=== PATIENT | male | born 1950 | race Caucasian/White ===

== ENCOUNTER → 2016-08-18 | Outpatient (CLI) | payer SELFPAY | LOC: EMS 16:18 | DX: Z53.20 Procedure and treatment not carried out because of patient's decision for unspecified reasons (principal) ==

== ENCOUNTER → 2016-09-01 | Outpatient (CLI) | payer SELFPAY | LOC: EMS 13:38 | DX: Z53.20 Procedure and treatment not carried out because of patient's decision for unspecified reasons (principal) ==

== ENCOUNTER 2016-10-30 09:15 | Observation (INO) | payer MEDICARE, OTHER ==
[~2016-10-30] VITALS: Ht 177.8 cm; Wt 98.2 kg
[2016-10-30] VITALS (7 sets, daily range): BP systolic 120–148; BP diastolic 74–96
[~2016-10-30 09:15] MED LIST changes: -ALBU8CC IH; -CETI10TA20 PO; -CYAN10006 PO; -FLC1T PO; -LORA-102 PO; -LSRT50T PO; -MAGN1POW4 PO; -METO-71 PO; -TRIA10.8 NSEACH; -VITAMIN B PO
--- OUTSIDE RECORDS SUMMARY | 2016-10-30 09:24 | XMS REPORT | Continuity of Care Document ---
Author Author [facility] LIVE HCIS Organization [facility]IS Address Unknown Phone Unavailable Care Team Providers Care Sheet Layer Name Role Phone TANIA WALSH MD PCP [phone] Insurance Providers Payer Name Policy Number Subscriber Name Relationship Medicare A And B [id number] Jacinta Babb Jeramy Self / Same As Patient [facility] [id number] Jacinta Babb Self / Same As Patient Chief Complaint and Reason for Visit Chief Complaint Injury Reason for Visit Left knee pain Problems Medical Problems Problem Onset Date Status Left knee pain Unknown Active Medications Medication Dose Route Sig Days/Qty Instructions Order Date Discontinued Date Status Metoprolol Succinate 100 Mg ORAL TWICE A DAY 12/28/14 Active Metformin Hcl (Glucophage) 1,000 Mg ORAL TWICE A DAY 12/28/14 Active Omeprazole 20 Mg ORAL DAILY 12/28/14 Active Atorvastatin 80 Mg ORAL DAILY 12/28/14 Active Lisinopril (Zestril) 10 Mg ORAL DAILY 12/28/14 Active Hydrocodone Bit/Acetaminophen 1 Each ORAL EVERY 4HRS PRN PAIN Active Docusate Sodium 100 Mg ORAL TWICE A DAY 12/28/14 Active Multivitamin 1 Each ORAL DAILY 12/28/14 Active Aspirin 81 Mg ORAL DAILY 12/28/14 Active Triamcinolone Acetonide 10.8 Ml NS DAILY 12/28/14 Active Cetirizine Hcl 10 Mg ORAL DAILY 12/28/14 Active Loratadine/Pseudoephedrine 1 Each ORAL DAILY 12/28/14 Active Social History No social history. Hospital Discharge Instructions No hospital discharge instructions. Plan of Care Discharge Date 12/29/14 12:35am Disposition 01 HOME OR SELF-CARE Prescriptions See Medications Section Referrals TANIA WALSH MD Additional Instructions/Education Continue current pain medication as needed Follow up with Dr. Walsh Sunday or Sunday for recheck Return if symptoms worsen. Some of your test results may not be complete prior to your leaving the Emergency Department. The Emergency Department is not authorized to give test results over the phone. Please contact the doctor's office listed in this packet of information for your final results. Follow up with your primary care physician or return to the Emergency Department for worsening or worrisome symptoms. * Emergency Department phone number: [phone], x [phone] MEDICAL RECORD If you need copies of your X-rays, call [phone]. If you need copies of your medical record, including lab results, a signed authorization for release of records will be required. A telephone call for release of Health Information is not allowed. BILLING Billing can sometimes be confusing and frustrating. To help avoid confusion in the future, please take a moment to acquaint yourself with the billing parties for services. [employer] Emergency Room Services [facility] Physician Services [facility] X-rays [place] [facility] Patients will receive bills for services from the appropriate provider. If you have any questions about your [facility] bill, our staff will be happy to assist you. Please call [phone], and ask for the billing department. THANK YOU for choosing [facility] as your emergency care provider! Functional Status No functional status results. Allergies, Adverse Reactions, Alerts Allergen Type Severity Reaction Status Last Updated Sulfa (Sulfonamide Antibiotics) Allergy Severe allergies. Active 12/28/14 Phenobarbital Allergy Severe Anaphylaxis Active 12/28/14 PCN Allergy Severe Hives Active 12/28/14 Immunizations No immunization records. Vital Signs Acute Vital Signs Vital Response Date/Time Temperature (Fahrenheit) 97.2 Pulse 75 bpm Respirations 18 Height 5 ft 9 in Weight 205 lb Body Mass Index 30.0 kg/m^2 Results Test Source Date Result Interp. Ref. Range Comments Alanine Aminotransferase (ALT/SGPT) November 09, 2014 3:33pm 43 U/L N 30- 65 Albumin November 09, 2014 3:33pm 4.2 g/dL N 3.4-5.0 Albumin/Globulin Ratio November 09, 2014 3:33pm 1.909 H 1.1-1.8 Alkaline Phosphatase November 09, 2014 3:33pm 117 U/L N 38-126 Anion Gap November 09, 2014 3:33pm 18.2 MEQ/L H 3-15 Aspartate Amino Transf (AST/SGOT) November 09, 2014 3:33pm 59 U/L H 15-37 BUN/Creatinine Ratio November 09, 2014 3:33pm 9 L 10-20 Basophils # (Auto) November 09, 2014 3:33pm 0.1 10^3uL Basophils (%) (Auto) November 09, 2014 3:33pm 2 % N 0-2 Blood Urea Nitrogen November 09, 2014 3:33pm 7 mg/dL N 7-18 Calcium Level November 09, 2014 3:33pm 9.1 mg/dL N 8.8-10.8 Calcium/Ionized Calcium Ratio November 09, 2014 3:33pm 4.2 mg/dL N 3.8-4.6 Calculated Osmolality November 09, 2014 3:33pm 254 mosm/L L 280-300 Carbon Dioxide Level November 09, 2014 3:33pm 21 mmol/L L 22-29 Chloride Level November 09, 2014 3:33pm 98 mmol/L N 98-108 Cholesterol Level November 09, 2014 3:33pm 131 mg/dL N 50-200 Cholesterol/HDL Ratio November 09, 2014 3:33pm 1.7 N 0.0-5.0 Creatinine November 09, 2014 3:33pm 0.77 mg/dL L 0.8-1.5 Eosinophils # (Auto) November 09, 2014 3:33pm 0.1 10^3uL Eosinophils (%) (Auto) November 09, 2014 3:33pm 3 % N 0-4 Estimat Glomerular Filtration Rate November 09, 2014 3:33pm 123.5 Estimated GFR (Non- November 09, 2014 3:33pm 102.0 Glucose Level November 09, 2014 3:33pm 81 mg/dL DN 70-110 HDL Cholesterol November 09, 2014 3:33pm 75 mg/dL H 40-60 Hematocrit November 09, 2014 3:33pm 32.80 % L 39.00-50.00 Hemoglobin November 09, 2014 3:33pm 11.4 g/dL L 13.5-17.0 Hemoglobin A1c November 09, 2014 3:33pm 5.7 % N 4.0-6.0 LDL Cholesterol, Calculated November 09, 2014 3:33pm 40 mg/dL L 50-130 Lymphocytes # (Auto) November 09, 2014 3:33pm 0.8 X10^3 Lymphocytes (%) (Auto) November 09, 2014 3:33pm 18 % L 20-46 Mean Corpuscular Hemoglobin November 09, 2014 3:33pm 34.0 PG N 26.0-34.0 Mean Corpuscular Hemoglobin Concent November 09, 2014 3:33pm 34.8 g/dL N 31.0-37.0 Mean Corpuscular Volume November 09, 2014 3:33pm 98 FL N 80-100 Mean Platelet Volume November 09, 2014 3:33pm 8.9 FL N 6.0-9.5 Monocytes # (Auto) November 09, 2014 3:33pm 0.7 X10^3 Monocytes (%) (Auto) November 09, 2014 3:33pm 15 % H 3-11 Neutrophils # (Auto) November 09, 2014 3:33pm 2.8 X10^3 Neutrophils (%) (Auto) November 09, 2014 3:33pm 61 % N 51-67 Platelet Count November 09, 2014 3:33pm 262 10^3uL N 150-450 Potassium Level November 09, 2014 3:33pm 4.6 mmol/L N 3.5-5.1 Prostate Specific Antigen May 11, 2014 2:24pm <0.1 ng/mL 0.0-4.5 AUA PSA Best Practice Guidelines: Age-Adjusted PSA Values by Ethnic Group Age Range Asians - Caucasians Americans 40-49 0-2.0 0-2.0 0-2.5 50-59 0-3.0 0-4.0 0-3.5 60-69 0-4.0 0-4.5 0-4.5 70-79 0-5.0 0-5.5 0-6.5 Red Blood Count November 09, 2014 3:33pm 3.35 10^6uL L 4.50-5.50 Red Cell Distribution Width November 09, 2014 3:33pm 14.3 % N 11.8-15.6 Sodium Level November 09, 2014 3:33pm 133 mmol/L L 135-150 Total Bilirubin November 09, 2014 3:33pm 0.7 mg/dL N 0.1-1.0 Total Protein November 09, 2014 3:33pm 6.4 g/dL N 6.4-8.5 Triglycerides Level November 09, 2014 3:33pm 79 mg/dL N 10-150 VLDL Cholesterol April 22, 2012 4:30pm 24 mg/dL 0-28 VLDL Cholesterol, Calculated November 09, 2014 3:33pm 16 mg/dL N 4.00- 40.00 White Blood Count November 09, 2014 3:33pm 4.58 10^3uL N 4.0-11.0 Procedures No known history of procedures. Encounters Encounter Location Date/Time Departed Emergency Room [facility] 12/28/14 10:00pm Registered Clinic [facility] 12/28/14 9:55pm Recent Diagnosis
[2016-10-30] MEDS ORDERED: THIAMINE 100 MG/ML (VITAMIN B1) 2 ML VIAL IM ONE (09:30)
[2016-10-30 09:57] LABS: BASOPHILS % (AUTO) 1 % (0-2); EOSINOPHILS # (AUTO) 0.2 10^3uL; EOSINOPHILS % (AUTO) 4 % (0-4); LYMPHOCYTES # (AUTO) 0.8 X10^3; MEAN CORPUSCULAR HGB CONC 33.8 g/dL (31.0-37.0); MEAN PLATELET VOLUME 8.8 FL (6.0-9.5); MONOCYTES # (AUTO) 0.4 X10^3; MONOCYTES % (AUTO) 7 % (3-11); NEUTROPHILS # (AUTO) 4.4 X10^3; NEUTROPHILS % (AUTO) 74 % (51-67); PLATELET COUNT 236 10^3uL (150-450); WHITE BLOOD COUNT 5.88 10^3uL (4.0-11.0)
[2016-10-30 10:04] LABS: MEAN CORPUSCULAR HEMOGLOBIN 33.1 PG (26.0-34.0); MEAN CORPUSCULAR VOLUME 98 FL (80-100)
--- NOTE | 2016-10-30 10:17 | NUR ---
report from ems that he has fallen x 3 since midnight, ambulance called by each time, refused to come in until this am fall, stated to ems that he had taken 6 metoprolol since midnight because he wanted to commit suicide, told this nurse the same, has been an alcoholic x 20 years, recently told him she wants to leave after 25 years of marriage, has been on a diet of m'm's and 7 up x 1 wk, ems reports 3 empty bottles of "black velvet" in the home, has dumped 3 drinks this am already, pt has chronic back pain , script for metoprolol filled 09/02/16(script states take BID
--- NOTE | 2016-10-30 10:20 | NUR ---
pt unable to urinate
[2016-10-30 10:22] LABS: BILIRUBIN,URINE Negative (Negative); CLARITY,URINE Clear; COLOR,URINE Yellow; GLUCOSE, URINE (UA) Negative (Negative); LEUKOCYTE ESTERASE ,URINE Negative (Negative); UROBILINOGEN,URINE 0.2 mg/dL (0.2-1.0)
[2016-10-30 10:37] LABS: RBC,URINE 0-2 /HPF; URINE CENTRIFUGED VOLUME 12 mL
[2016-10-30 10:38] LABS: ALBUMIN 4.5 g/dL (3.4-5.0); ALKALINE PHOSPHATASE 104 U/L (38-126); ANION GAP 19.6 MEQ/L (3-15); BUN/CREATININE RATIO 6 (10-20); CALCULATED IONIZED CALCIUM 3.8 mg/dL (3.8-4.6); TOTAL PROTEIN 7.4 g/dL (6.4-8.5)
[2016-10-30 10:38] LABS: AMPHETAMINE SCREEN, URINE Negative (Negative); CANNABINOID SCREEN, URINE Negative (Negative); METHAMPHETAMINE SCREEN URINE S NEGATIVE (NEGATIVE); OPIATE SCREEN URINE Negative (Negative); PROPOXYPHENE STAT NEGATIVE (NEGATIVE)
--- NOTE | 2016-10-30 10:46 | NUR ---
went in with physician, pt told him that he had intent to kill himself
--- NOTE | 2016-10-30 11:15 | History and Physical (E) ---
History & Physical PCP: Dr Walsh CC: Acute Alcohol intoxication- Suicide Ideations HPI: Jonel is a 66 year old male who comes to the ED for acute alcohol intoxication and threatening to want to kill himself. In the ED his alcohol level was > 300. His has reportedly asked for a divorce after 25 years of marriage. When I saw him on the unit- he's awake showing some tremors, he admits to drinking Whiskey all night. here at bedside. Tearful at times- doesn't have a good relationship with his Mother or brother. States " I have alot of guns at home I could use. I took alot of Metoprolol today" Admits to " wanting to ". Denies any chest pain or SOB. PMH: Asthma Anemia NIDDM- not taking meds at this time Fall HTN Prostate cancer- chemo and Rad through [facility] in [place] OA RA Spinal Stroke Constipation PSH: 3 knee Replacements Left rotator cuff repair Carpal Tunnel Cyst ankle Right forearm tendon surgery Bilateral Orchiectomy ALLERGIES: Please see list at end of report. HOME MEDICATIONS: Please see list at end of report. FH: Father Mother alive and lives with his brother in town SH: , retired, lives with , does not smoke, uses alcohol, has one child ROS CONSTITUTION: Denies weight loss or gain. Denies fever or chills. HEENT: No change in vision or hearing. No sores in mouth, sore throat. CV: No chest pain, palpitations. PULM: No cough, shortness of breath, difficulty breathing. GI: No upset stomach, nausea, vomiting, constipation, or diarrhea. No blood in stool. : No dysuria. No blood in urine. MS: No new muscle or joint aches and pains. NEURO: No numbness or tingling. No weakness. INTEG: No rashes, lesions, or sores. ENDO: No heat or cold intolerance. No polydipsia or polyuria. HEME/LYMPH: No easy bruising or bleeding. No swollen glands. PSYCH: Laughs during conversation then tearful, but answers me appropriately. Calm not beligerent OBJECTIVE Vitals: Vital Signs Date Time Temp Pulse Resp B/P Pulse Ox O2 Delivery O2 Flow Rate FiO2 10/30/16 09:15 97.4 95 16 114/79 95 Room Air GEN: Awake, alert, oriented, NAD HEENT: EOMI, PERRL, dry oral mucosa. CV: RRR S1 S2 normal with no murmur LUNGS: CTA B ABD: Soft, NT/ND with normal bowel sounds. EXTR: No C/C/E. Normal peripheral pulses. INTEG: No rash. NEURO: No focal motor neuro deficit. Weight: 100 kg LABS CBC BMP Last 24 Hrs 10/30/16 09:47 10/30/16 10:15 Laboratory Results Past 24 Hrs 10/30/16 09:47: Basophils # (Auto) 0.1, Basophils (%) (Auto) 1, Eosinophils # (Auto) 0.2, Eosinophils (%) (Auto) 4, Hematocrit 35.80, Hemoglobin 12.1, Lymphocytes # (Auto ) 0.8, Lymphocytes (%) (Auto) 13, Mean Corpuscular Hemoglobin 33.1, Mean Corpuscular Hemoglobin Concent 33.8, Mean Corpuscular Volume 98, Mean Platelet Volume 8.8, Monocytes # (Auto) 0.4, Monocytes (%) (Auto) 7, Neutrophils # (Auto ) 4.4, Neutrophils (%) (Auto) 74, Platelet Count 236, Red Blood Count 3.66, Red Cell Distribution Width 15.8, White Blood Count 5.88 10/30/16 10:00: Ur Tricyclic Antidepressants Screen Negative, Urine Amphetamines Screen Negative , Urine Bacteria Rare, Urine Barbiturates Screen Negative, Urine Benzodiazepines Screen Negative, Urine Bilirubin Negative, Urine Blood Negative , Urine Cannabinoids Screen Negative, Urine Clarity Clear, Urine Cocaine Screen Negative, Urine Collection Type Random voided, Urine Color Yellow, Urine Glucose (UA) Negative, Urine Hyaline Casts 3+, Urine Ketones Negative, Urine Leukocyte Esterase Negative, Urine Methadone Screen Negative, Urine Methamphetamines Screen Negative, Urine Microscopic RBC 0-2, Urine Mucus 2+, Urine Nitrite Negative, Urine Opiates Screen Negative, Urine Oxycodone Screen Negative, Urine Phencyclidine Screen Negative, Urine Propoxyphene Screen Negative, Urine Protein 1+, Urine Specific [place] 1.015, Urine Squamous Epithelial Cells 5-10, Urine Urobilinogen 0.2, Urine WBC 0-2, Urine pH 6.0, Volume Urine Centrifuged 12 ml 10/30/16 10:15: Acetaminophen Level < 10.0, Alanine Aminotransferase (ALT/SGPT) 36, Albumin 4.5 , Albumin/Globulin Ratio 1.551, Alkaline Phosphatase 104, Anion Gap 19.6, Aspartate Amino Transf (AST/SGOT) 42, BUN/Creatinine Ratio 6, Blood Urea Nitrogen 6, Calcium Level 8.9, Calcium/Ionized Calcium Ratio 3.8, Calculated Osmolality 272, Carbon Dioxide Level 24, Chloride Level 103, Creatinine 0.95, Estimat Glomerular Filtration Rate 96.3, Estimated GFR (Non- 79.6, Glucose Level 108, Potassium Level 4.4, Serum Alcohol 332.0, Sodium Level 142, Thyroid Stimulating Hormone (TSH) 0.57, Total Bilirubin 0.6, Total Protein 7.4 IMAGING ASSESSMENT/PLAN: Jonel is a 66 year old male admitted through the ED today 10-30-16 fro acute alcohol intoxications and demonstrating suicidal ideations. Blood alcohol level 332 in the ED. HTN OA RA Alcohol abuse Anemia H/O Prostate cancer Constipation F/V/E- IV hydration, clear liquid diet, monitor for alcohol withdrawal, Code Status- Full Code Disposition-Will have [facility] screen once sober for inpatient Psychiatry eval. Discussed this with him and his Dr. Spence' Note I saw Mr. Babb on 10/30/2016 shortly after he reached the ICU bed. He is stable with a very high blood alcohol level. He does not slur his words in the least; that is his diction is essentially perfect despite a 332 blood alcohol level. He has chronic left knee pain despite 3 operations on it. He has bilateral foot dysfunction after a spinal stroke in about 2007. He gets around home with a wheeled walker and a motorized scooter.He voices no current complaints. lungs-clear to auscultation heart-regular rate and rhythm abdomen bs are active;abdomen is non tender extremities show no c/c/ edema assessment:acute alcohol intoxication chronic left knee pain suicidal ideation hypertension depression director long term care chronic alcohol abuse Plan: iv fluids,ativan as needed and referral to [facility] for in patient treatment. I have read the H AND P DONE BY Ms. Galan and I fully approve. Allergies/Home Medications Allergies: Coded Allergies: Penicillins (Verified Allergy, Severe, HIVES, 10/30/16) Sulfa (Sulfonamide Antibiotics) (Verified Allergy, Severe, allergies., ) phenobarbital (Unverified Allergy, Severe, Anaphylaxis, 12/28/14) Reported Home Medications Scheduled Aspirin (Aspirin) 81 MG PO DAILY (Reported) Atorvastatin (Lipitor) 80 MG PO DAILY (Reported) Cyanocobalamin (Vitamin B-12) (Vitamin B-12) 1,000 MCG PO DAILY (Reported) Docusate Sodium (Colace) 100 MG PO BID (Reported) Folic Acid (Folic Acid) 1 MG PO DAILY (Reported) Loratadine/Pseudoephedrine Sul (Claritin-D 12 Hour Tablet) 1 TAB PO BID ( Reported) Losartan Potassium (Losartan Potassium) 50 MG PO DAILY (Reported) Metformin HCl (Metformin HCl) 1,000 MG PO BID (Reported) Metoprolol Tartrate (Lopressor) 100 MG PO BID (Reported) Multivitamin (Multi-Vitamin Daily) 1 EACH PO DAILY (Reported) Omeprazole (Omeprazole) 20 MG PO DAILY (Reported) Triamcinolone Acetonide (Nasacort) 2 SPRAY NS DAILY (Reported) Scheduled PRN Albuterol Sulfate (Ventolin HFA) 2 PUFF IH QID PRN PRN DYSPNEA (Reported) Hydrocodone Bit/Acetaminophen (Hydrocodon-Acetaminophen 5-325) 1 EACH PO TID PRN PRN PAIN (Reported) Discontinued Medications ([VITAMIN B12 1000 mcg]) 1,000 MCG PO DAILY (Reported) Cetirizine HCl (Zyrtec) 10 MG PO DAILY (Reported) Discontinued Reason: Course completed Lisinopril (Lisinopril) 10 MG PO DAILY (Reported) Discontinued Reason: Course completed Loratadine/Pseudoephedrine (Claritin-D 24 Hour Tablet) 1 EACH PO DAILY (Reported ) Discontinued Reason: Course completed Metoprolol Succinate (Metoprolol Succinate) 100 MG PO BID (Reported) Discontinued Reason: Course completed Copies to: End of Report . Blanca Galan APRN Oct 30, 2016 11:15 BRUNO SPENCE DO Oct 31, 2016 09:12
--- NOTE | 2016-10-30 11:15 | NUR ---
The patient arrives to room 342 via cart. monitors placed and assessment is ongoing at this time.
[2016-10-30] MEDS ORDERED: LORazepam 2 MG/ML (ATIVAN) 1 ML VIAL IV PRN (11:20)
[2016-10-30] MEDS ORDERED: ACETAMINOPHEN 325 MG TAB (TYLENOL) PO PRN (11:20)
[2016-10-30] MEDS ORDERED: HALOPERIDOL 5 MG/ML (HALDOL) 1 ML AMP IM PRN (11:20)
[2016-10-30] MEDS ORDERED: NS FLUSH 10 ML PRN IV (11:35)
[2016-10-30] MEDS ORDERED: NS FLUSH 3 ML PRN IV (11:35)
[2016-10-30] MEDS: LORazepam 2 MG/ML (ATIVAN) 1 ML VIAL IV PRN ×2 (12:12→18:16)
--- NOTE | 2016-10-30 12:40 | NUR ---
22 gauge IV started in the Right Wrist
[2016-10-30] MEDS: MULTIVITAMIN INJ 10 ML, THIAMINE INJ 100 MG, MAGNESIUM SULFATE 1GM VIAL 2 GM in D5LR 1,... IV SCH (13:24)
--- NOTE | 2016-10-30 13:40 | NUR ---
Admission process is complete and the patient is currently resting in bed under the covers with eyes closed. During assessment the patient is up to the side of bed with assist of 1 to urinate. He often laughs to questions regarding his medical history and current health issues. He does endorse suicidal ideation at this time and briefly becomes tearful. at the bedside. VSS and WNL. Telemetry reads Sinus Rhythm with heart rate in the 60's to 70s.
[2016-10-30] MEDS ORDERED: METO-71 PO (13:46)
[2016-10-30] MEDS ORDERED: FLC1T PO (13:47)
[2016-10-30] MEDS ORDERED: LSRT50T PO (13:47)
[2016-10-30] MEDS ORDERED: VITAMIN B PO (13:49)
[2016-10-30] MEDS ORDERED: CYAN10006 PO (14:02)
[2016-10-30] MEDS ORDERED: ALBU8CC IH (14:27)
[2016-10-30] MEDS ORDERED: TRIA10.8 NSEACH (14:29)
[2016-10-30] MEDS ORDERED: LORA-102 PO (14:31)
[2016-10-30] MEDS: KETOROLAC 30 MG/ML (TORADOL) 1 ML VIAL IV PRN (16:07)
--- NOTE | 2016-10-30 17:07 | NUR ---
IV site to right wrist is swollen. No redness or phlebitis. IV discontinued at this time
--- NOTE | 2016-10-30 17:08 | NUR ---
22 gauge IV missed to the right hand. Armboard in place to the left AC.
[2016-10-30] MEDS ORDERED: oxyCODONE/ACETAMINOPHEN 5MG-325 MG (PERCOCET) TABLET ONE (18:27)
[2016-10-30] MEDS: HYDROcodone/APAP 5 MG/325 MG (NORCO) TAB PO PRN (18:31)
--- NOTE | 2016-10-30 18:37 | NUR ---
Patient is visibly shaking and complaining of pain. Patient is repositioned for comfort and IV ativan and PO [place] given.
--- NOTE | 2016-10-30 18:59 | NUR ---
Report given to Mary VIRK and care relinquished
--- NOTE | 2016-10-30 19:00 | NUR ---
Report received, care assumed. Pt resting in bed. Cooperative with staff. Denies needs. Reports the pills given earlier are working for him now.
--- NOTE | 2016-10-30 21:00 | NUR ---
Pt resting with tv on. Denies needs. Has been cooperative with staff. No suicidal ideation voiced with this RN this shift so far.
[2016-10-31] MEDS: MULTIVITAMIN INJ 10 ML, THIAMINE INJ 100 MG, MAGNESIUM SULFATE 1GM VIAL 2 GM in D5LR 1,... IV SCH (00:06)
[2016-10-31] MEDS: HYDROcodone/APAP 5 MG/325 MG (NORCO) TAB PO PRN ×2 (03:30→11:14)
--- NOTE | 2016-10-31 03:30 | NUR ---
Administered [place] 5 one tab for report of pain all over. No other needs. Call light in reach.
[2016-10-31 03:57] VITALS: BP 149/94
[2016-10-31 03:58] VITALS: BP 149/94
--- NOTE | 2016-10-31 05:55 | NUR ---
Pt awake, watching television. Denies discomfort. Has been cooperative all shift. No suicidal ideation thoughts voiced during this shift. Pt has slept most of the night, has woke a few times but has quickly gone back to sleep. NO other needs at this time. Call light in reach.
[2016-10-31 06:00] LABS: BASOPHILS % (AUTO) 1 % (0-2); EOSINOPHILS # (AUTO) 0.1 10^3uL; EOSINOPHILS % (AUTO) 2 % (0-4); LYMPHOCYTES # (AUTO) 0.5 X10^3; MEAN CORPUSCULAR HGB CONC 34.8 g/dL (31.0-37.0); MEAN CORPUSCULAR VOLUME 96 FL (80-100); MEAN PLATELET VOLUME 8.1 FL (6.0-9.5); MONOCYTES # (AUTO) 0.5 X10^3; MONOCYTES % (AUTO) 10 % (3-11); NEUTROPHILS # (AUTO) 3.7 X10^3; NEUTROPHILS % (AUTO) 76 % (51-67); PLATELET COUNT 150 10^3uL (150-450); WHITE BLOOD COUNT 4.83 10^3uL (4.0-11.0)
[2016-10-31 06:01] LABS: MEAN CORPUSCULAR HEMOGLOBIN 33.4 PG (26.0-34.0)
[2016-10-31 06:21] LABS: ANION GAP 13.7 MEQ/L (3-15)
[2016-10-31 08:00] VITALS: BP 157/99
[2016-10-31] MEDS ORDERED: NS FLUSH 3 ML DAILY IV SCH (09:00)
[2016-10-31] MEDS: KETOROLAC 30 MG/ML (TORADOL) 1 ML VIAL IV PRN ×2 (09:04→17:02)
--- NOTE | 2016-10-31 09:30 | Progress Note (E) ---
Progress Note Dr Ricci' Note ;I saw Mr Babb in ICU today.He has no complaints. He is aware [facility] will come see and interview him today. He denies chest pain,denies sob, and he denies abdominal discomfort. He does c/o continuing severe left knee pain. heart-RRR lungs- CTA, bilaterally abdomen -soft with active bs integument-no bruises or rash noted. 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 hopefully today. BRUNO RICCI DO Oct 31, 2016 09:30
[2016-10-31] MEDS: ONDANSETRON 2 MG/ML (Z0FRAN) 2 ML VIAL IV PRN ×2 (09:42→17:00)
[2016-10-31 12:26] VITALS: BP 155/103
--- NOTE | 2016-10-31 13:19 | NUR ---
Amber from [facility] evaluated Pt. and recommended inpatient psychiatric care and Dr. Spence agreed. Amber and Doctor visited with Pt. about the benefits of going inpatient vs having to go involuntarily. Pt. agreed Pt. should go for help but Pt. was not agreeable at this time and wanted to talk it over with his . SW followed up with Pt. after lunch and he still had not made a decision. Pt. reported Pt. does not care for [facility] due to a past experience when his and he went for therapy. PHILLY explained [facility] had a bed available, Pt. could go voluntarily to [facility] or [facility] or there is a facility at [facility] that specialized in people who are 55 years old or older with Medicare. Pt. would need to be voluntary, have his DPOA sign them in or be screened in order to be admitted. Pt. and reported Pt. does not have a DPOA established. Pt. asked about the memory care unit at [facility]. PHILLY explained Pt. would need to be stable meaning he was no longer having suicidal ideation. PHILLY explained the benefit of going inpatient and getting stablized and established with a medication regimen to help his depression. Pt. and would like to research his options and his brought his tablet for him to do this. PHILLY will check in late to see if Pt. has made a decision.
[2016-10-31] MEDS ORDERED: MAGN1POW4 PO (14:00)
[2016-10-31] MEDS ORDERED: [UNRECOGNIZED DRUG - CODE] PO (14:00)
[2016-10-31] MEDS ORDERED: CETI10TA20 PO (14:02)
--- NOTE | 2016-10-31 14:03 | NUR ---
MED REC COMPLETE--current med list obtained from external med history, list provided by patient's PCP (Dr. Walsh), and patient report (written list from patient's ).
--- NOTE | 2016-10-31 14:16 | NUR ---
Dr. Walsh visited with Pt. and after their conversation Pt. agreeable to going to inpatient at [facility] in [place]. SW contacted [facility] and they do have beds available. Information faxed to [facility] for the physician to review. Awaiting acceptance at this time. Updated Pt. on this process. Pt. reported she has friends coming over this afternoon that will unload all the guns and take them with them. Addendum: 10/31/16 at 1633 by Jannet MARTINES Pt. has been accepted to [facility] Inpatient Psychiatric unit. Pt. will discharge to their facility this evening via EMS. Nurse Francis will provide report to [facility] nurse. Pt. will be able to take PtYou garza to [facility] if she would like.
[2016-10-31 16:31] VITALS: BP 147/106
[2016-10-31 16:32] VITALS: BP 147/106
--- NOTE | 2016-10-31 16:34 | Discharge Instructions (E) ---
Discharge Instructions Instructions Go with the escort from [place] / EMS to the [facility] office. Activity Instructions as tolerated Doctor's Appointment n/a Discharge Diet: Heart Healthy BRUNO RICCI DO Oct 31, 2016 16:33
--- NOTE | 2016-10-31 16:45 | Discharge Summary (E FT) ---
Discharge Summary (E FT) Admit Date Oct 30, 2016 at 11:00 Discharge Date October Admitting Provider Bruno Ricci DO Primary Care Provider Amish Walsh MD Attending Provider Bruno Ricci DO Consulting Provider Hospital Course Summary Mr Babb was admitted to observation out of our ED with a diagnosis of acute ethanol intoxication and suicidal ideation. Jonel is a 66 year old male who comes to the ED for acute alcohol intoxication and threatening to want to kill himself. In the ED his alcohol level was > 300. His has reportedly asked for a divorce after 25 years of marriage. When I saw him on the unit- he's awake showing some tremors, he admits to drinking Whiskey all night. here at bedside. Tearful at times- doesn't have a good relationship with his Mother or brother. States " I have alot of guns at home I could use. I took alot of Metoprolol today" Admits to " wanting to ". Denies any chest pain or SOB. PMH: Asthma Anemia NIDDM- not taking meds at this time Fall HTN Prostate cancer- chemo and Rad through [facility] in [place] OA RA Spinal Stroke in about 2008. Constipation pt does not have good,able use of his legs/feet after the spinal stroke in 2007 [id number]. PSH: 3 knee Replacements Left rotator cuff repair Carpal Tunnel Cyst ankle Right forearm tendon surgery Pt. sobered up overnight ,but refused to denounce his stated idea of committing suicide and even bragged about how many guns he owned at home. He initially refused to consider in patient treatment for his suicidal ideation and his marked depression. When Dr Walsh came to the ICU and spoke to Mr. Babb he rapidly changed his mind. Mr Babb agreed to voluntarily go to be treated as an inpatient at [facility] in [place], [place] today. 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 Transportation to be by [facility]. Follow up Instructions Go with the escort from [facility] / EMS to the [facility] office. Copies to: End of Report . BRUNO RICCI DO Oct 31, 2016 16:45
--- NOTE | 2016-10-31 17:21 | NUR ---
AM [facility] called this AM for consult as alcohol level is WNL. VSS and Jonel is up in bed watching television without complaint. The patient is up to commode this AM with 1 assist for a BM. Patient has intermittent nausea and pain this AM treated with IV Zofran, Toradol and [place] PO. is in the room for [facility] consult at 10:15 AM. Jonel continues to endorse SI and thinks he is better off . Treatment options discussed with Jennifer Andrade [facility] and Amber Aj from [facility]. Inpatient psychiatric treatment is requested at this time despite reluctance from the patient. PM Jonel is up to shower with 2 assist. He returns to room for lunch and is up in bed with at the bedside. VSS and WNL. The patient is cooperative and compliant and able discuss treatment options. He states "Im still thinking whether or not Ill go to inpatient." At approximately 1400 Dr. Walsh is in to see the patient and bed request is made at [facility] shortly after. The patient rests quietly in his bed under covers until approximately 1630 when the patient is accepted to [facility]. At 1700 report is called to [facility]. IV toradol and IV zofran is given for stomach pain and discomfort before the patient is dismissed and care relinquished at 1720.
== END 2016-10-31 17:20 ==
LOC: EDUNIT# 09:15 → ED 09:20 → ICU 11:00
DX: F10.220 Alcohol dependence with intoxication, uncomplicated (principal); R45.851 Suicidal ideations; Y90.8 Blood alcohol level of 240 mg/100 ml or more; G89.29 Other chronic pain; M25.562 Pain in left knee; I10 Essential (primary) hypertension; F32.9 Major depressive disorder, single episode, unspecified; E11.9 Type 2 diabetes mellitus without complications; M06.9 Rheumatoid arthritis, unspecified; Z85.46 Personal history of malignant neoplasm of prostate
CPT/HCPCS: 36415; 80048; 80053; 80307; 81003; 81015; 84443; 85025; 93005; 96361; 96365; 96366; 96372; 96375; 96376; 99283; A9270; G0378; G0480; J1885; J2060; J2405; J3411; J3475; J7030; 80320; 80329; 93010; 96360; 99218; 99284

== ENCOUNTER → 2016-10-30 | Outpatient (CLI) | payer MEDICARE, OTHER ==
[~2016-10-30] MED LIST: ALBU8CC IH; ASPI-860 PO; ATOR80TA PO; CETI10TA20 PO; CETI10TA76 PO; CYAN10006 PO; DOCU-243 PO; FLC1T PO; HYDR-3702 PO; LORA-102 PO; LSNP10T PO; LSRT50T PO; MAGN1POW4 PO; METF1000 PO; METO-274 PO; METO-71 PO; MULT-955 PO; OMEP20CA12 PO; TRIA10.8 NS; TRIA10.8 NSEACH; VITAMIN B PO; [UNRECOGNIZED DRUG - CODE] PO
== END ==
LOC: EMS 00:20
PROVIDERS: ATTEND Emergency Medicine
DX: Z53.20 Procedure and treatment not carried out because of patient's decision for unspecified reasons (principal)

== ENCOUNTER → 2016-10-31 | Outpatient (CLI) | payer MEDICARE, OTHER ==
[~2016-10-31] MED LIST changes: +ALBU8CC IH; +CETI10TA20 PO; +CYAN10006 PO; +FLC1T PO; +LORA-102 PO; +LSRT50T PO; +MAGN1POW4 PO; +METO-71 PO; +TRIA10.8 NSEACH; +VITAMIN B PO
== END ==
LOC: EMS 17:15
DX: R45.851 Suicidal ideations (principal); F10.10 Alcohol abuse, uncomplicated

== ENCOUNTER → 2016-11-09 | Outpatient (REF) | payer MEDICARE, OTHER ==
[2016-11-09 10:02] LABS: MEAN CORPUSCULAR HGB CONC 33.3 g/dL (31.0-37.0); MEAN PLATELET VOLUME 9.3 FL (6.0-9.5); PLATELET COUNT 227 10^3uL (150-450); WHITE BLOOD COUNT 5.29 10^3uL (4.0-11.0)
[2016-11-09 10:08] LABS: MEAN CORPUSCULAR HEMOGLOBIN 33.1 PG (26.0-34.0); MEAN CORPUSCULAR VOLUME 99 FL (80-100)
[2016-11-09 10:09] LABS: BAND NEUTROPHILS % 0 % (0-6); EOSINOPHILS % 2 % (0-4); LYMPHOCYTES # 0.4 #; MONOCYTES # 0.6 #; MONOCYTES % 12 % (3-11); RBC MORPH NORMAL (NORMAL); SEGMENTED NEUTROPHILS % 77 % (51-67); TOTAL CELLS COUNTED 100
[2016-11-09 10:14] LABS: ALBUMIN 3.8 g/dL (3.4-5.0); ANION GAP 14.1 MEQ/L (3-15); CALCULATED IONIZED CALCIUM 4.4 mg/dL (3.8-4.6); TOTAL PROTEIN 6.3 g/dL (6.4-8.5)
== END ==
LOC: LAB 09:48
PROVIDERS: ATTEND Nurse Practitioner Family
DX: I10 Essential (primary) hypertension (principal)
CPT/HCPCS: 80053; 85025

== ENCOUNTER → 2016-11-12 | Outpatient (CLI) | payer MEDICARE, OTHER | LOC: EMS 04:40 | PROVIDERS: ATTEND Emergency Medicine | DX: Z53.20 Procedure and treatment not carried out because of patient's decision for unspecified reasons (principal) ==

== ENCOUNTER → 2016-11-16 | Outpatient (REF) | payer MEDICARE, OTHER | LOC: LAB 07:30 | PROVIDERS: ATTEND Nurse Practitioner Family | DX: D64.9 Anemia, unspecified (principal) ==

== ENCOUNTER → 2016-11-21 | Outpatient (CLI) | payer MEDICARE, OTHER ==
[2016-11-21 13:24] LABS: BASOPHILS % (AUTO) 1 % (0-2); EOSINOPHILS # (AUTO) 0.2 10^3uL; EOSINOPHILS % (AUTO) 2 % (0-4); LYMPHOCYTES # (AUTO) 0.7 X10^3; MEAN CORPUSCULAR HGB CONC 33.4 g/dL (31.0-37.0); MEAN CORPUSCULAR VOLUME 96 FL (80-100); MEAN PLATELET VOLUME 9.4 FL (6.0-9.5); MONOCYTES # (AUTO) 0.6 X10^3; MONOCYTES % (AUTO) 8 % (3-11); NEUTROPHILS # (AUTO) 6.5 X10^3; NEUTROPHILS % (AUTO) 81 % (51-67); PLATELET COUNT 265 10^3uL (150-450); WHITE BLOOD COUNT 8.03 10^3uL (4.0-11.0)
[2016-11-21 13:26] LABS: ABSOLUTE RETIC # 39 10^3uL (22-82)
[2016-11-21 13:37] LABS: ALBUMIN 4.2 g/dL (3.4-5.0); ANION GAP 18.3 MEQ/L (3-15); CALCULATED IONIZED CALCIUM 4.1 mg/dL (3.8-4.6); TOTAL PROTEIN 7.2 g/dL (6.4-8.5)
[2016-11-21 14:01] LABS: ERYTHROCYTE SEDIMENTATION RT* 55 mm/hr (0-19)
[2016-11-21 21:53] LABS: IRON 33 ug/dL (65-175); UNBOUND IRON CONTENT 251 ug/dl (126-382)
[2016-11-23 17:23] LABS: KAPPA LIGHT CHAINS SERUM 3.32 mg/dL; LAMBDA LIGHT CHAINS SERUM 3.55 mg/dL (())
== END ==
LOC: LAB 13:04
PROVIDERS: ATTEND Internal Medicine Hematology & Oncology
DX: D64.9 Anemia, unspecified (principal)
CPT/HCPCS: 36415; 80053; 82668; 82728; 82746; 82784; 83010; 83540; 83550; 83615; 83883; 84155; 84443; 85025; 85045; 85652; 86334

== ENCOUNTER → 2016-11-26 | Outpatient (CLI) | payer MEDICARE, OTHER | LOC: EMS 20:49 | DX: Z53.20 Procedure and treatment not carried out because of patient's decision for unspecified reasons (principal) ==